=== PATIENT | male | born 1955 | race African-American/Black ===

== ENCOUNTER 2018-09-29 10:47 | Emergency (ER) | payer MEDICARE, OTHER ==
[~2018-09-29] VITALS: Ht 180.3 cm; Wt 84.1 kg
[~2018-09-29 10:47] MED LIST: ALDACTONE25 MG PO; AMLODIPINE5 MG PO; AMOXICILLIN500 MG PO; AUGMENTIN875TAB PO; AVALIDE1 TAB OR; BIAXIN500 M1 PO; CIPROFLOXACN500 MG PO; FLONASE NASAL50 MCG; FOLIC ACID1 MG PO; FOSRENOL500 MG PO; KEFLEX500 MG PO; LABETALOL HCL300 MG PO; LABETALOL200 MG OR; LABETALOL200 MG PO; LISINOPRIL40 MG PO; MUCINEX600 MG PO; NORVASC10 M1 PO; PHOSLO667 M1 PO; PRILOSEC20 MG PO; PRINIVIL5 MG PO; RENAGEL800 MG OR; RENAGEL800 MG PO; RENVELA800 MG PO; ROBITUSSIN AC10 ML PO; SENSIPAR30 MG PO; SYNTHROID25 MCG PO; TRANDATE200 M1 OR; ULTRAM50 M1 PO
[2018-09-29 11:50] VITALS: BP 180/90
== END 2018-09-29 11:50 | disposition home or self-care (01) ==
LOC: ED 10:47
PROC: 0HQEXZZ Repair Left Lower Arm Skin, External Approach (ICD-10-PCS; principal; 2018-09-29)
DX: T82.838A Hemorrhage due to vascular prosthetic devices, implants and grafts, initial encounter (principal); Y83.2 Surgical operation with anastomosis, bypass or graft as the cause of abnormal reaction of the patient, or of later complication, without mention of misadventure at the time of the procedure; I12.0 Hypertensive chronic kidney disease with stage 5 chronic kidney disease or end stage renal disease; N18.6 End stage renal disease; Z99.2 Dependence on renal dialysis

== ENCOUNTER 2019-05-03 | Emergency (ER) | payer MEDICARE, OTHER ==
[2019-05-03] MEDS ORDERED: KEFLEX500 M1 PO (21:13)
[2019-05-03] MEDS ORDERED: BACTRIM DS1 TAB PO (21:13)
== END 2019-05-03 21:29 | disposition home or self-care (01) ==
PROC: 0J970ZZ Drainage of Back Subcutaneous Tissue and Fascia, Open Approach (ICD-10-PCS; principal; 2019-05-03)
DX: L02.219 Cutaneous abscess of trunk, unspecified (principal); I12.0 Hypertensive chronic kidney disease with stage 5 chronic kidney disease or end stage renal disease; N18.6 End stage renal disease; Z99.2 Dependence on renal dialysis

== ENCOUNTER 2019-05-06 15:17 | Emergency (ER) | payer MEDICARE, OTHER ==
[~2019-05-06 15:17] MED LIST changes: +BACTRIM DS1 TAB PO; +KEFLEX500 M1 PO
[2019-05-06 17:06] VITALS: BP 137/75
== END 2019-05-06 17:24 | disposition home or self-care (01) ==
LOC: ED 15:17
DX: Z48.01 Encounter for change or removal of surgical wound dressing (principal); I12.0 Hypertensive chronic kidney disease with stage 5 chronic kidney disease or end stage renal disease; N18.6 End stage renal disease; Z99.2 Dependence on renal dialysis

== ENCOUNTER 2019-05-24 17:43 | Emergency (ER) | payer MEDICARE, OTHER ==
[2019-05-24] MEDS ORDERED: DEBROX6.5 % OT (18:07)
[2019-05-24 18:49] VITALS: BP 156/78
== END 2019-05-24 18:49 | disposition home or self-care (01) ==
LOC: ED 17:43
DX: H61.23 Impacted cerumen, bilateral (principal); I12.0 Hypertensive chronic kidney disease with stage 5 chronic kidney disease or end stage renal disease; N18.6 End stage renal disease; Z99.2 Dependence on renal dialysis

== ENCOUNTER 2019-07-04 | Emergency (ER) | payer MEDICARE, OTHER ==
[~2019-07-04] MED LIST changes: +DEBROX6.5 % OT
[2019-07-04 14:42] LABS: HEMATOCRIT 29.9 % (39.0-50.0); HEMOGLOBIN 9.5 g/dl (14.0-18.0); MEAN CELL VOLUME 96.1 fL CALC (80.0-100.0); MEAN CORPUSCULAR HGB 30.5 pG CALC (26.0-32.0); MEAN CORPUSCULAR HGB CONC 31.8 g/dL CAL (32.0-36.0); NEUT# 0.91 thou/uL (1.82-7.42); RED BLOOD COUNT 3.11 mill/uL (4.70-6.10); RED CELL DISTRI WIDTH 13.7 % (11.5-15.5)
[2019-07-04 14:59] LABS: ACT PARTIAL THROMBO TIME 29.2 SECONDS (20.0-32.5); INTERNATIONAL NORMALIZED RATIO 1.2 RATIO (0.7-1.3); PROTHROMBIN TIME 12.2 SECONDS (9.0-12.5)
[2019-07-04] MEDS ORDERED: LATANOPROST0.005 % OU (15:00)
[2019-07-04] MEDS ORDERED: SIMBRINZA1 SUS OU (15:01)
[2019-07-04] MEDS ORDERED: DOXAZOSIN MESYLA8 MG PO (15:02)
[2019-07-04] MEDS ORDERED: APRESOLINE50 MG PO (15:02)
[2019-07-04 15:04] LABS: BILIRUBIN, TOTAL 0.8 mg/dL (0.0-1.4); POTASSIUM 4.7 mmol/l (3.5-5.1); TOTAL PROTEIN 7.1 g/dL (6.3-8.2)
[2019-07-04 15:08] LABS: CREATININE 5.2 mg/dL (0.7-1.3)
== END 2019-07-04 16:02 | disposition short-term general hospital (02) ==
PROVIDERS: Emergency Medicine
DX: T82.837A Hemorrhage due to cardiac prosthetic devices, implants and grafts, initial encounter (principal); I12.0 Hypertensive chronic kidney disease with stage 5 chronic kidney disease or end stage renal disease; N18.6 End stage renal disease; Y83.2 Surgical operation with anastomosis, bypass or graft as the cause of abnormal reaction of the patient, or of later complication, without mention of misadventure at the time of the procedure; Z99.2 Dependence on renal dialysis